=== PATIENT | male | born 1995 | race Caucasian/White ===

== ENCOUNTER 2017-03-15 15:01 | Emergency (ER) | payer MEDICAID ==
[~2017-03-15] VITALS: Ht 175.3 cm; Wt 65.9 kg
[2017-03-15 15:15] VITALS: BP 123/87
[2017-03-15] MEDS ORDERED: HYDROcodone/acetaminophen 10/325mg tab PO ONE (16:10)
[2017-03-15] MEDS ORDERED: HYDR-565 PO (16:49)
== END 2017-03-15 17:16 | disposition home or self-care (01) ==
LOC: ER 15:02
DX: S72.001A Fracture of unspecified part of neck of right femur, initial encounter for closed fracture (principal); Z59.0 Homelessness; V00.131A Fall from skateboard, initial encounter; Y93.51 Activity, roller skating (inline) and skateboarding; Y92.89 Other specified places as the place of occurrence of the external cause; Y99.8 Other external cause status
CPT/HCPCS: 71010; 73502; 73552; 99284

== ENCOUNTER 2017-03-26 11:39 | Emergency (ER) | payer MEDICAID ==
[~2017-03-26] VITALS: Ht 176.5 cm; Wt 69.4 kg
[~2017-03-26 11:39] MED LIST: HYDR-565 PO
[2017-03-26 14:45] LABS: BASOPHILS # (AUTO) 0.1 X10'3 (0-0.2); BASOPHILS % (AUTO) 0.6 % (0-1); HEMATOCRIT 42.2 % (42.0-52.0); HEMOGLOBIN 14.3 g/dl (14.0-17.9); LYMPHOCYTES % (AUTO) 19.8 % (21-51); MEAN CORPUSCULAR HEMOGLOBIN 30.2 PG (27.0-31.0); MEAN CORPUSCULAR HGB CONC 33.9 % (33.0-36.5); MEAN CORPUSCULAR VOLUME 89.2 FL (78-98); MEAN PLATELET VOLUME 7.8 FL (7.4-10.4); MONOCYTES # (AUTO) 0.7 X10'3 (0-0.9); MONOCYTES % (AUTO) 6.6 % (2-12); NEUTROPHILS # (AUTO) 6.3 X10'3 (1.8-7.7); PLATELET COUNT 274 X10'3 (140-440); RED BLOOD COUNT 4.73 X10'6 (4.70-6.10); RED CELL DISTRIBUTION WIDTH 13.2 % (11.5-14.5); WHITE BLOOD COUNT 9.9 X10'3 (4.5-11.0)
[2017-03-26 14:53] LABS: ALBUMIN 3.8 G/DL (3.4-5.0); ANION GAP 6 (8-16); BLOOD UREA NITROGEN 22 MG/DL (7-18); BUN/CREATININE RATIO 24.2 (5.4-32.0); CALCIUM 9.2 MG/DL (8.5-10.1); CHLORIDE 107 MMOL/L (99-107); CREATININE 0.91 MG/DL (0.60-1.10); GLUCOSE 96 MG/DL (70-104); POTASSIUM 4.3 MMOL/L (3.5-5.1); SODIUM 143 MMOL/L (135-145); TOTAL CARBON DIOXIDE 29.6 MMOL/L (24-32); eGFR > 90 ML/MIN
[2017-03-26 15:24] VITALS: BP 125/66
== END 2017-03-26 15:25 | disposition home or self-care (01) ==
LOC: ER 11:41
DX: S80.11XA Contusion of right lower leg, initial encounter (principal); M25.561 Pain in right knee; K92.1 Melena; Z59.0 Homelessness; X58.XXXA Exposure to other specified factors, initial encounter; Y93.89 Activity, other specified; Y92.89 Other specified places as the place of occurrence of the external cause; Y99.9 Unspecified external cause status
CPT/HCPCS: 36415; 80048; 85025; 93971; 99285

== ENCOUNTER 2018-04-23 05:03 | Emergency (ER) | payer MEDICAID ==
[~2018-04-23] VITALS: Ht 167.6 cm; Wt 78.0 kg
[2018-04-23 05:44] VITALS: BP 134/82
[2018-04-23 09:27] LABS: HIV ANTIBODY 1&2 RAPID NON-REACTIVE (Neg)
[2018-04-24 09:16] LABS: HBSAG SCREEN Negative (Negative); HEPATITIS C ANTIBODY <0.1 s/co ratio (0.0-0.9)
== END 2018-04-23 05:49 ==
LOC: ER 05:04
DX: R51 Headache (principal)
CPT/HCPCS: 36415; 86703; 86706; 86803; 87340; 99283